=== PATIENT | female | born 1995 | race Caucasian/White ===

== ENCOUNTER 2022-03-31 14:59 | Emergency (ER) | payer BC, SELFPAY ==
[2022-03-31 15:06] VITALS: BP 130/65; PULSE 86; RESP 20; TEMP 36.8; O2SAT 97
[2022-03-31 15:14] VITALS: BP 130/65; PULSE 86; RESP 20; TEMP 36.8; O2SAT 97
--- NOTE | 2022-03-31 15:41 | ED.EAR ---
HPI - Ear Problem General Chief complaint: Ear Stated complaint: Ear drainage / dizziness Time Seen by Provider: 03/31/22 15:41 Source: patient, RN notes reviewed and old records reviewed Mode of arrival: ambulatory Limitations: no limitations History of Present Illness HPI Narrative: 26 year old female who presents to [facility] care with 3 day history of bilateral ear pain, cough, post nasal drainage, nausea without vomiting, some dizziness with position changes. Patient reports that she has not had any COVID vaccinations or flu shot.Patient reports that she has been taking allergy medication. MD Complaint: ear pain and other (dizziness) Treatment prior to arrival: other (allergy medication) Related Data Allergies Allergy/AdvReac Type Severity Reaction Status Date / Time Sulfa (Sulfonamide Allergy Hives Verified 03/31/22 15:13 Antibiotics) Review of Systems Review of Systems: CONSTITUTIONAL: Denies fever, chills, or sweats. EYES: Denies visual changes, redness, or discharge. ENT: Denies rhinorrhea, congestion, sore throat,bilateral otalgia. CARDIOVASCULAR: Denies chest pain, palpitations, or edema. RESPIRATORY: some cough no dyspnea. GASTROINTESTINAL: Denies abdominal pain,positive for nausea,no vomiting, or diarrhea. GENITOURINARY: Denies dysuria or hematuria. SKIN: Denies rash or itching. MUSCULOSKELETAL: Denies back pain, joint pain, or myalgia. NEUROLOGIC: Denies headache, numbness, or weakness. PSYCHIATRIC:Positive for history of anxiety or depression. [facility] Past Medical History Medical History (Updated 04/02/22 @ 17:20 by Laura Ponce NP) Anxiety and depression Ear infection Surgical History Surgical History (Updated 04/02/22 @ 17:21 by Laura Ponce NP) History of placement of ear tubes History of tonsillectomy and adenoidectomy Social History Social History (Updated 04/02/22 @ 17:23 by Laura Ponce NP) Smoking status: Current every day smoker Tobacco type: cigarettes and e-cigarettes/vaping Additional smoking assessment comments: Quit cigarettes now vapes for past 6 months. Alcohol intake: current Alcohol use details: social Substance use type: does not use Gender identity (if verbalized by the patient): Female Comments At time of signature, agree with nursing past medical, surgical, social and family history. There is no relevant family history pertinent to the presenting complaint Exam Narrative: GENERAL: Well-appearing, well-nourished, and in no acute distress. HEAD: Normocephalic, atraumatic. EYES: PERRLA and EOMI. ENT: Nares pink with clear rhinorrhea no epistaxis.TM's dull lght reflex with no redness, throat with mild redness no lesions no tonsils present, post nasal drainage HEART: Regular rate and rhythm. No murmur heard. Normal peripheral pulses.Respirations even and nonlabored clear to ascultation SAO2 97% on room air ABDOMEN: Soft, nontender, nondistended, normal active bowel sounds. EXTREMITIES: Normal range of motion. No edema. SKIN: Warm, dry, no rash. NEURO: No focal deficits. Alert and oriented x3. Course Course Level of Care: Express Care Visit Vital Signs Vital signs: Vital Signs Temperature 36.8 C 03/31/22 15:06 Pulse Rate 86 03/31/22 15:06 Respiratory Rate 20 03/31/22 15:06 Blood Pressure 130/65 03/31/22 15:06 Pulse Oximetry 97 03/31/22 15:06 Oxygen Delivery Room Air 03/31/22 15:06 Temperature 36.8 C 03/31/22 15:14 Pulse Rate 86 03/31/22 15:14 Respiratory Rate 20 03/31/22 15:14 Blood Pressure 130/65 03/31/22 15:14 Pulse Oximetry 97 03/31/22 15:14 Oxygen Delivery Room Air 03/31/22 15:14 Medical Decision Making Differential Diagnosis Differential Diagnosis: Otitis media otitis externa, URI, pharyngitis, viral syndrome Medical Records Medical records reviewed: Yes I reviewed the external patient's medical records. Vital Signs Vital Signs: Vital Signs Temperature 36.8 C 03/31/22
== END 2022-03-31 16:43 | disposition home or self-care (01) ==
PROVIDERS: Emergency Provider Registered Nurse
DX: J06.9 Acute upper respiratory infection, unspecified (principal); F17.290 Nicotine dependence, other tobacco product, uncomplicated
CPT/HCPCS: 87081; 87880; 99213; G0463